=== PATIENT | female | born 1950 | race Caucasian/White ===

== ENCOUNTER → 2017-04-27 | Outpatient (CLI) | payer OTHER | LOC: BMCIMAGING 14:57 → EDSTATUS 14:58 | PROVIDERS: ATTEND Orthopaedic Surgery | DX: M25.861 Other specified joint disorders, right knee (principal) ==

== ENCOUNTER → 2017-05-20 | Outpatient (CLI) | payer OTHER | LOC: FIMAGING 15:38 | PROVIDERS: ATTEND Orthopaedic Surgery | DX: Z01.818 Encounter for other preprocedural examination (principal); M17.11 Unilateral primary osteoarthritis, right knee ==

== ENCOUNTER 2017-06-06 07:30 | Inpatient (IN) | payer OTHER ==
--- NOTE | 2017-06-06 06:40 | PDHPUP ---
History & Physical Update H&P update statement: This history and physical update is based on an assessment of the patient which was completed after admission or registration (within 24 hours), but prior to the surgery/procedure.
--- NOTE | 2017-06-06 06:41 | PDIAF ---
- Diagnosis Diagnosis: right knee djd Code Status: Full Code - Medication Management Discharge Medications: Medications to Continue on Transfer Herbals/Supplements -Info Only 1 ea PO DAILY 12/12/13 [Last Taken Unknown] Sertraline HCl [Zoloft 50mg (*)] 75 mg PO HS 12/12/13 [Last Taken 12/19/13 05:00 ] Ascorbic Acid [Vitamin C 500 mg (*)] 1,000 mg PO DAILY 05/04/17 [Last Taken Unknown] Cholecalciferol Vit D3 [Vitamin D3 (*)] 1,000 units PO DAILY 05/04/17 [Last Taken Unknown] Compounded Biaest 6mg 1 each PO DAILY 05/04/17 [Last Taken Unknown] Compounded Dim 1 joe TP DAILY 05/04/17 [Last Taken Unknown] Compounded Preg/Dhea 25/50 1 each PO DAILY 05/04/17 [Last Taken Unknown] Compounded Progesterone 250mg 1 each PO HS 05/04/17 [Last Taken Unknown] Compounded Testosterone 12mg 1 each TP DAILY 05/04/17 [Last Taken Unknown] Cyanocobalamin [Vitamin B12 (*)] 500 mcg PO DAILY 05/04/17 [Last Taken Unknown] Ibuprofen [Motrin (*)] 200 mg PO DAILY PRN 05/04/17 [Last Taken Unknown] Levothyroxine [Synthroid 88 mcg (*)] 88 mcg PO DAILY06 05/04/17 [Last Taken Unknown] Discharge Medications: Refer to the Discharge Home Medication list for PRN reason. - Orders Services needed: Home Care, Physical Therapy Home Care Face to Face: I certify that this patient was under my care and that I had the required [id number]-[id number] encounter meeting the encounter requirements on the discharge day. My findings support the fact that the patient is homebound as defined in Home Care Face to Face Continued: CMS Chapter 7 Medicare Benefits Manual 30.1.1 , The condition of the patient is such that there exists a normal inability to leave home and consequently, leaving home would require a considerable and taxing effort. Isolation Type: None Diet Recommendation: no restrictions on diet Diet Texture: Regular Texture Diet Activity/Weight Bearing Restrictions: wbat. daily dressing changes. ice prn. davide hose x 2 weeks. f/u at two weeks as previously scheduled. aspirin 325 mg po daily for six weeks. seek attn for increasing pain, cp, sob, drainage. fevers or other focal complaints - Follow Up Care Current Providers and Referrals: Kermit Mata MD [Primary Care Provider] -
[~2017-06-06 07:30] MED LIST: ROPIVACAINE 0.2% 80 MG, EPINEPHrine 0.2 MG, KETOROLAC TROMETHAMINE 30 MG, morphINE 10 M... IU ONE; TRANEXAMIC ACID 770 MG in NS 100 ML IV ONE; VANCOMYCIN 1.25 GM in D5W 250 ML IV ONE; VANCOMYCIN PHARMACY TO DOSE MISC ONE
[2017-06-06] MEDS ORDERED: FAMOTIDINE 20 MG TAB PO ONE (07:42)
[2017-06-06] MEDS ORDERED: ACETAMINOPHEN 325 MG TAB PO ONE (07:42)
[2017-06-06] MEDS ORDERED: LIDOCAINE 1% 2 ML INJ ID PRN (07:51)
[2017-06-06] MEDS ORDERED: LR 1,000 ML IV ONE (07:51)
[2017-06-06] MEDS ORDERED: CALCIUM CHLORIDE 1 GM/10 ML INJ ONE (09:14)
[2017-06-06] MEDS ORDERED: THROMBIN (BOVINE) 5,000 UNIT VIAL TP ONE (09:14)
[2017-06-06] MEDS ORDERED: ceFAZolin 1 GM/5 ML SYR ONE (09:15)
[2017-06-06] MEDS ORDERED: ROCURONIUM 50 MG/5 ML VIAL ONE (09:35)
[2017-06-06] MEDS ORDERED: HYDROmorphONE/DILAUDID 2 MG/ML INJ ONE (09:35)
[2017-06-06] MEDS ORDERED: HYDROCORTISONE 100 MG/2 ML VIAL ONE ×2 (09:35→10:28)
[2017-06-06] MEDS ORDERED: fentaNYL 100 MCG/2 ML INJ ONE ×2 (09:35)
[2017-06-06] MEDS ORDERED: PROPOFOL 200 MG/20 ML VIAL ONE (09:36)
[2017-06-06] MEDS ORDERED: MIDAZOLAM 2 MG/2 ML VIAL ONE (09:52)
[2017-06-06] MEDS ORDERED: POLYMYXIN B SULFATE 500,000 UNIT/10 ML SYR IRR ONE (10:21)
[2017-06-06] MEDS ORDERED: BACITRACIN 50,000 UNITS/10 ML SYR IRR ONE (10:22)
[2017-06-06] MEDS ORDERED: PHENYLEPHRINE HCL 100 MCG/ML SYR ONE (10:29)
[2017-06-06] MEDS ORDERED: DIPHENOXYLATE/ATROPINE LOMOTIL 1 TAB PO PRN (11:12)
[2017-06-06] MEDS ORDERED: MAGNESIUM HYDROXIDE 30 ML UDCUP PO PRN (11:12)
[2017-06-06] MEDS ORDERED: DIAZEPAM 5 MG TAB PO PRN (11:12)
[2017-06-06] MEDS ORDERED: METOCLOPRAMIDE 10 MG/2 ML VIAL IVP PRN (11:12)
[2017-06-06] MEDS ORDERED: TEMAZEPAM 15 MG CAP PO PRN (11:12)
[2017-06-06] MEDS ORDERED: BISACODYL 10 MG SUPP PR PRN (11:12)
[2017-06-06] MEDS ORDERED: POLYETHYLENE GLYCOL 3350 17 GM PKT PO PRN (11:12)
[2017-06-06] MEDS ORDERED: diphenhydrAMINE 25 MG CAP PO PRN (11:12)
[2017-06-06] MEDS ORDERED: PROMETHAZINE HCL 25 MG/ML INJ IVP PRN ×2 (11:12→11:15)
[2017-06-06] MEDS ORDERED: LACTULOSE 20 GM/30 ML UDCUP PO PRN (11:12)
[2017-06-06] MEDS ORDERED: PROMETHAZINE HCL 25 MG SUPPR PR PRN (11:12)
[2017-06-06] MEDS ORDERED: ONDANSETRON DISINTEGRATING 4 MG TAB PO PRN (11:12)
[2017-06-06] MEDS ORDERED: oxyCODONE IR 5 MG TAB PO PRN (11:12)
[2017-06-06] MEDS ORDERED: ONDANSETRON 4 MG/2 ML VIAL IVP PRN ×2 (11:12→11:15)
[2017-06-06] MEDS ORDERED: MIDAZOLAM 2 MG/2 ML VIAL IVP ONE (11:14)
[2017-06-06] MEDS ORDERED: fentaNYL 100 MCG/2 ML INJ IVP PRN (11:15)
[2017-06-06] MEDS ORDERED: HYDROmorphONE/DILAUDID 1 MG/ML INJ IVP PRN (11:15)
[2017-06-06] MEDS ORDERED: NALOXONE HCL 0.4 MG/ML INJ IVP PRN (11:15)
[2017-06-06] MEDS ORDERED: LR 1,000 ML IV SCH (11:30)
--- NOTE | 2017-06-06 11:57 | POSTANESTH ---
Post Anesthetic Evaluation Cardiovascular Status: Normal, Stable Respiratory Status: Normal, Stable Level of Consciousness/Mental Status: Can Participate in Eval Pain Control: Adequate, Prn Tx Ordered Nausea/Vomiting Control: Adequate, Prn Tx Ordered Complications Possibly Related to Anesthesia: None Noted
[2017-06-06] MEDS: TRANEXAMIC ACID 650 MG TAB PO SCH ×2 (13:58→18:08)
[2017-06-06] MEDS: ACETAMINOPHEN 325 MG TAB PO SCH ×3 (13:59→23:50)
[2017-06-06] MEDS ORDERED: PROGESTERONE PO SCH (21:00)
[2017-06-06] MEDS ORDERED: SERTRALINE HCL 50 MG TAB PO SCH (21:00)
[2017-06-06] MEDS ORDERED: VANCOMYCIN 1.25 GM in D5W 250 ML IV ONE (21:30)
[2017-06-06] MEDS: FAMOTIDINE 20 MG TAB PO SCH (21:47)
[2017-06-06] MEDS: ASPIRIN 325 MG TAB PO SCH (21:47)
[2017-06-06] MEDS: SENNOSIDES/DOCUSATE SODIUM TAB PO SCH (21:48)
[2017-06-07] MEDS: TRANEXAMIC ACID 650 MG TAB PO SCH (02:44)
[2017-06-07] MEDS: ACETAMINOPHEN 325 MG TAB PO SCH ×2 (05:37→12:02)
[2017-06-07 05:41] LABS: HEMATOCRIT 34.8 % (38.0-47.0); HEMOGLOBIN 12.1 g/dL (12.6-16.3)
[2017-06-07] MEDS ORDERED: LEVOTHYROXINE 88 MCG TAB PO SCH (06:00)
--- NOTE | 2017-06-07 07:28 | PDIAF ---
- Diagnosis Diagnosis: right knee djd Code Status: Full Code - Medication Management Discharge Medications: Medications to Continue on Transfer Herbals/Supplements -Info Only 1 ea PO DAILY 12/12/13 [Last Taken 05/23/17] Sertraline HCl [Zoloft 50mg (*)] 75 mg PO HS 12/12/13 [Last Taken 06/05/17 20:30 ] Ascorbic Acid [Vitamin C 500 mg (*)] 1,000 mg PO DAILY 05/04/17 [Last Taken 10/04] Cholecalciferol Vit D3 [Vitamin D3 (*)] 1,000 units PO DAILY 05/04/17 [Last Taken 05/23/17] Compounded Biaest 6mg 1 each PO DAILY 05/04/17 [Last Taken 05/23/17] Compounded Dim 1 joe TP DAILY 05/04/17 [Last Taken 05/23/17] Compounded Preg/Dhea 25/50 1 each PO DAILY 05/04/17 [Last Taken 05/23/17] Compounded Progesterone 250mg 1 each PO HS 05/04/17 [Last Taken 05/23/17] Compounded Testosterone 12mg 1 each TP DAILY 05/04/17 [Last Taken 05/23/17] Cyanocobalamin [Vitamin B12 (*)] 500 mcg PO DAILY 05/04/17 [Last Taken 05/23/17] Ibuprofen [Motrin (*)] 200 mg PO DAILY PRN 05/04/17 [Last Taken 05/30/17] Levothyroxine [Synthroid 88 mcg (*)] 88 mcg PO DAILY06 05/04/17 [Last Taken 05:00] Aspirin [Aspirin 325 mg (*)] 325 mg PO DAILY tab 06/07/17 [Last Taken Unknown] oxyCODONE IR [Oxycodone Ir (*)] 5 - 10 mg PO Q3HRS PRN #80 tab 06/07/17 [Last Taken Unknown] Discharge Medications: Refer to the Discharge Home Medication list for PRN reason. - Orders Services needed: Home Care, Physical Therapy Home Care Face to Face: I certify that this patient was under my care and that I had the required [id number] encounter meeting the encounter requirements on the discharge day. My findings support the fact that the patient is homebound as defined in Home Care Face to Face Continued: CMS Chapter 7 Medicare Benefits Manual 30.1.1 , The condition of the patient is such that there exists a normal inability to leave home and consequently, leaving home would require a considerable and taxing effort. Isolation Type: None Diet Recommendation: no restrictions on diet Diet Texture: Regular Texture Diet Activity/Weight Bearing Restrictions: wbat. daily dressing changes. ice prn. davide hose x 2 weeks. f/u at two weeks as previously scheduled. aspirin 325 mg po daily for six weeks. seek attn for increasing pain, cp, sob, drainage. fevers or other focal complaints - Follow Up Care Current Providers and Referrals: Kermit Mata MD [Primary Care Provider] - Andriy Martinez MD [Medical Doctor] -
[2017-06-07 07:30] VITALS: BP 103/68; RESP 14; TEMP 98.1
[2017-06-07] MEDS ORDERED: [UNRECOGNIZED DRUG - OTHER] TP SCH (09:00)
[2017-06-07] MEDS ORDERED: [UNRECOGNIZED DRUG - MIXTURE] PO SCH (09:00)
[2017-06-07] MEDS ORDERED: TESTOSTERONE TP SCH (09:00)
[2017-06-07] MEDS ORDERED: CYANO/VITAMIN B12 1000 MCG TAB PO SCH (09:00)
[2017-06-07] MEDS ORDERED: [UNRECOGNIZED DRUG - OTHER] PO SCH (09:00)
--- NOTE | 2017-06-07 09:26 | ASMTCMCOM ---
CM Note CM Note Notes: Met with patient regarding discharge plan of care and to confirm no home care needs (see previous pre-surgical CM note). Patient declines the need for home health care and states she has had previous knee surgeries in the past. She will discharge home with support of today, has all DME needed. Case Management available should needs arise. Date Signed: 06/07/2017 09:25 AM Electronically Signed By:Naomie Hawk RN
[2017-06-07] MEDS: FAMOTIDINE 20 MG TAB PO SCH (10:26)
[2017-06-07 10:29] VITALS: PULSE 76; O2SAT 93
[2017-06-07] MEDS: ASPIRIN 325 MG TAB PO SCH (10:43)
[2017-06-07] MEDS: SENNOSIDES/DOCUSATE SODIUM TAB PO SCH (10:43)
--- NOTE | 2017-06-07 14:31 | ASDISCHSUM ---
Discharge Information Plan Status:Home with No Needs Medically Cleared to Leave: Discharge Date:06/07/2017 02:26 PM CM D/C Disposition:Home, Routine, Self-Care ADT D/C Disposition:Home Health Service Projected Discharge Date:06/07/2017 02:26 PM Transportation at D/C: Discharge Delay Reason: Follow-Up Date:06/07/2017 02:26 PM Discharge Slot: Final Diagnosis: Placement Information Patient Contact Information Contact Name:RENEE Relationship: Address:[address] City:[place] Alternate Phone: State/Zip Code:[place] [address] Email: Financial Information Financial Class:[employer] Primary Plan Desc:VLADIMIR [facility]UM[facility] Primary Plan Number:[id number] Secondary Plan Desc: Secondary Plan Number: Assessment Information CM Legal Activity Adjudicator Assessment CJR Did you go to joint Answers: No (why?) Notes: eBlla has had 6 prior class? knee surgeries and does not feel that she would benefit from the joint class. CM Note CM Note Notes: Bella is planning to discharge home, independently. She has had six knee surgeries prior to this one and is very confident in the recovery process. Bella still has all her medical equipment and she is not planning to do any outpatient therapies. Date Signed: 06/03/2017 09:06 AM Electronically Signed By:Patsy Pratt [facility] CM Progress Note CM Note CM Note Notes: Met with patient regarding discharge plan of care and to confirm no home care needs (see previous pre-surgical CM note). Patient declines the need for home health care and states she has had previous knee surgeries in the past. She will discharge home with support of today, has all DME needed. Case Management available should needs arise. Date Signed: 06/07/2017 09:25 AM Electronically Signed By:Naomie Hawk RN Intervention Information
--- NOTE | 2017-06-07 15:05 | GDS ---
[f rep st] DISCHARGE SUMMARY ADMISSION DIAGNOSIS: Right knee degenerative joint disease. DISCHARGE DIAGNOSIS: Right knee degenerative joint disease. PROCEDURE: Right total knee arthroplasty. HISTORY OF PRESENT ILLNESS: Patient is a 66-year-old woman who has end-stage arthritis across her ri ght knee. Clinical and radiographic features are consistent with this. She has failed all attempts at conservative management, therefore, recommended total knee replacement. She understood the risks, benefits, alternatives and wished to proceed. Written consent was signed and placed in patient's art. HOSPITAL COURSE: The patient was admitted to the hospital floor after uncomplicated total knee arthr oplasty. She tolerated the procedure well. At the time of discharge, she is tolerating an oral diet . Her pain is well controlled on oral medicines. She is voiding and stooling without difficulty. D ressing is clean, dry, and intact. She has negative Arlene's bilaterally. X-rays are stable with genesis tomic alignment. There is no fracture or lucency. DISCHARGE ACTIVITY: She is weightbearing, range of motion as tolerated. Daily dressing changes. No soaking or immersion. May shower without the bandage. FOLLOWUP: In the orthopedic clinic in 2 weeks. Seek attention for increasing redness, swelling, blaise inage, discharge. DISCHARGE MEDICATIONS: 1. Aspirin 325 mg p.o. daily 4-6 weeks. 2. Oxycodone 5 mg 1-2 every 6 hours p.r.n. pain. /[id number]/MODL
--- NOTE | 2017-06-09 07:39 | GOP ---
[f rep st] OPERATIVE REPORT DATE OF OPERATION: 06/06/2017 SURGEON: Andriy Martinez MD ASSOCIATE TEACHER: Nir Cole, surgical orderly. Also present is STAS Maravilla. PREOPERATIVE DIAGNOSIS: Right knee degenerative joint disease. POSTOPERATIVE DIAGNOSIS: Right knee degenerative joint disease. PROCEDURE PERFORMED: Right total knee arthroplasty. FINDINGS: SPECIMENS: To pathology, the bony cuts. INDICATIONS: The patient is a 66-year-old woman with end-stage arthritis to her right knee. Clinica l and radiographic features are consistent with this. She has failed all attempts at conservative ma nagement. I have therefore recommended operative intervention. I have outlined the surgical procedu re, risks, benefits, and alternatives. She wished to proceed. Written consent was signed and placed in the patient's chart. DESCRIPTION OF PROCEDURE: The patient was identified in the preanesthesia area. The right knee cristobal rly demarcated as operative site with indelible marker. She was given 2 g of Ancef intravenously en route to the operative suite. In the OR, general endotracheal anesthesia was administered. Attentio n was turned to the right knee which was sterilely prepped and draped in usual fashion. A tourniquet was applied to the upper thigh. Appropriate time-out procedure was carried out. The limb was exsan guinated with an Esmarch bandage. Tourniquet inflated to 275 mmHg. Standard anterior midline incisi on was made. Thick subcutaneous flaps were elevated followed by medial parapatellar arthrotomy. The re were gross tricompartmental changes. Decision was made to proceed with a total knee replacement. Separate percutaneous incision was made in the mid femur and mid bacon. The tibial and femoral refer ence arrays were affixed in standard fashion. The femoral and tibial checkpoints were then placed. The knee was taken through full range of motion and the bony landmarks entered into the MAKOplasty ro bot software protocol. Appropriate soft tissue balancing and component alignment was achieved. in g the MAKOplasty robot, resections were made for a size 4 PS femoral component. A size 5 tibial rese ction and the femoral notch cut was placed. Trial reduction was carried out over a 5 x 9 mm polyethy trinh spacer. This allowed full flexion and extension with stability through the flexion/extension ar c. The patella was then cut in a freehand cutting technique and drill holes made for a 35 mm poly pa tella. All surfaces were thoroughly cleansed and dried. In a sequential fashion the tibial, femoral , and patellar components were then cemented. The tibial bearing insert, 5 x 9 mm was placed and con firmed to be fully seated. The knee was brought to extension while the cement cured. The joint cock tail of ropivacaine, morphine, Toradol, and epinephrine was instilled throughout the capsule and subc utaneous tissue while the cement cured. The knee was then closed over the medial parapatellar arthro audrey with a #1 Ethibond suture. The knee instilled with a joint cocktail of PRP. Subcutaneous tissu e closed using 0 Quill and the skin was stapled. The margins were well approximated. Sterile dressi ng was applied. The patient was awakened, extubated, taken recovery in good stable condition. TOTAL TOURNIQUET TIME: 55 minutes. COMPLICATIONS: None. IMPLANTS: The Triathlon PS femoral component, size 4, size 5 tibial base plate, 5 x 9 mm X3 tibial i nsert, X3 asymmetric poly patella, A35. DISPOSITION: To the recovery room, then the floor. /[id number]/MODL
== END 2017-06-07 14:26 | disposition home or self-care (01) | DRG 470 ==
LOC: F3N 07:30
PROVIDERS: ADMIT Orthopaedic Surgery; ATTEND Orthopaedic Surgery
PROC: 0SRC0J9 Replacement of Right Knee Joint with Synthetic Substitute, Cemented, Open Approach (ICD-10-PCS; principal; 2017-06-06 10:30)
PROC: 8E0Y0CZ Robotic Assisted Procedure of Lower Extremity, Open Approach (ICD-10-PCS; principal; 2017-06-06 10:30)
DX: M17.11 Unilateral primary osteoarthritis, right knee (principal)
CPT/HCPCS: 97116-GP; 97161-GP; 97165-GO; J0171; J1170; J1885; J2250; J2370; J2704; J2795; J3010; J3370

== ENCOUNTER → 2017-07-20 | Outpatient (CLI) | payer OTHER | LOC: BMCIMAGING 15:03 | PROVIDERS: ATTEND Physician Assistant | DX: Z47.1 Aftercare following joint replacement surgery (principal); Z96.651 Presence of right artificial knee joint ==

== ENCOUNTER → 2017-08-31 | Outpatient (CLI) | payer OTHER | LOC: BMCIMAGING 14:51 | PROVIDERS: ATTEND Physician Assistant | DX: Z47.1 Aftercare following joint replacement surgery (principal); Z96.651 Presence of right artificial knee joint ==

== ENCOUNTER → 2018-01-03 | Outpatient (CLI) | payer OTHER | LOC: FIMAGING 09:07 | PROVIDERS: ATTEND Orthopaedic Surgery | DX: M25.561 Pain in right knee (principal); M25.562 Pain in left knee; G89.29 Other chronic pain; R94.8 Abnormal results of function studies of other organs and systems; Z96.651 Presence of right artificial knee joint; Z96.652 Presence of left artificial knee joint | CPT/HCPCS: 78315; A9503 ==

== ENCOUNTER → 2018-05-31 | Outpatient (CLI) | payer OTHER | LOC: BMCIMAGING 14:52 | PROVIDERS: ATTEND Physician Assistant | DX: Z47.1 Aftercare following joint replacement surgery (principal); Z96.651 Presence of right artificial knee joint; T84.9XXA Unspecified complication of internal orthopedic prosthetic device, implant and graft, initial encounter ==